=== PATIENT | male | born 1940 | race Caucasian/White ===

== ENCOUNTER 2022-10-11 08:15 | Outpatient (RCR) | payer MEDICARE, BC, SELFPAY | END 2022-11-10 23:59 | disposition home or self-care (01) | PROVIDERS: PCP Family Medicine; Visit Provider Student in an Organized Health Care Education/Training Program | DX: R53.1 Weakness (principal); Z51.89 Encounter for other specified aftercare | CPT/HCPCS: 97110; 97116; 97162 ==

== ENCOUNTER 2022-10-27 08:59 | Outpatient (CLI) | payer MEDICARE, BC, SELFPAY ==
--- NOTE | 2022-10-27 09:15 | CRLHL7_ITS ---
For Patients: As a result of the Century Cures Act, medical imaging exams and procedure reports are released immediately into your electronic medical record. You may view this report before your referring provider. If you have questions, please contact your health care provider. Examination: US abdominal aorta Indication: Follow-up aneurysm Technique: Guerrero scale and color Doppler images of the aorta and common iliac arteries are obtained. Comparison: 10/19/2021 Findings: Proximal aorta: 3.5 x 3.5 cm Mid aorta: 4.2 x 4.1 cm Distal aorta: 3.1 cm Right common iliac artery: 2.0 x 2.5 cm Left common iliac artery: 2.6 x 2.9 cm Impression: Diffuse fusiform aneurysm of the aorta is likely similar measuring up to 4.2 cm. 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 Dictated by Michele Hooper MD @ 10/27/2022 11:19:36 AM (Electronically Signed)
== END 2022-10-27 09:00 | disposition home or self-care (01) ==
LOC: US 09:01
PROVIDERS: PCP Family Medicine; Visit Provider Family Medicine
DX: I71.40 Abdominal aortic aneurysm, without rupture, unspecified (principal)
CPT/HCPCS: 76775

== ENCOUNTER 2022-11-10 20:19 | Outpatient (CLI) | payer MEDICARE, BC, SELFPAY | END 2022-11-10 20:20 | disposition home or self-care (01) | LOC: AMB 11-24 03:19 | PROVIDERS: PCP Family Medicine; Visit Provider Internal Medicine | DX: I46.9 Cardiac arrest, cause unspecified (principal) | CPT/HCPCS: A0429 ==